=== PATIENT | male | born 1970 | race Caucasian/White ===

== ENCOUNTER 2016-08-07 14:24 | Emergency (ER) | payer SELFPAY ==
[~2016-08-07] VITALS: Ht 170.2 cm; Wt 76.0 kg
[2016-08-07 14:25] VITALS: BP 177/105; PULSE 86; RESP 16; TEMP 98; O2SAT 95
--- NOTE | 2016-08-07 16:08 | PD ---
HPI Chief Complaint: Numbness/Tingling Time Seen by Provider: 16:07 Travel History International Travel<30 days: No Contact w/Intl Traveler<30days: No Traveled to known affect area: No History of Present Illness HPI Patient is a 46-year-old male presenting to the emergency department for evaluation of numbness and tingling on the right side of his body for one week. Patient states that he gets chest pain that feels like a sharp stabbing pain in the middle of his chest. He reports the cough is worse in the morning. He denies any nausea, vomiting, abdominal pain, diaphoresis. He denies any significant past medical history however he states that he is unsure if he has any problems because he hasn't been to a doctor. Patient does endorse daily tobacco use, one pack per day. He also endorses daily EtOH use, he states he drinks 2 double shots of whiskey as well as 4 pack of but light daily. He has been doing this for the last 2 years since his divorce. Additionally patient states that his right lower leg has been extremely painful and tight, getting worse over the last week. He states that he is unable to walk on it for very long due to the pain. [facility] Past Medical History Medical History: Denies Significant Hx Past Surgical History Surgical History: No Previous Surgery Social History Alcohol Use: Yes Tobacco Use: Yes Substance Use: No Allergies-Medications (Allergen,Severity, Reaction): Coded Allergies: No Known Allergies (Unverified , 08/07/16) Review of Systems Except as stated in HPI: all other systems reviewed are Neg HENT: No: Headaches Cardiovascular: Positive: Chest Pain or Discomfort Respiratory: Positive: Cough Gastrointestinal: No: Nausea, Vomiting, Abdominal Pain Musculoskeletal: Positive: Myalgias, Pain Neurologic: Positive: Sensory Disturbance, No: Weakness, Dizziness, Syncope, Focal Abnormalities Physical Exam Narrative GENERAL: Well-developed, well-nourished, alert male. Resting comfortably in no acute distress. SKIN: Warm and dry. HEAD: Atraumatic. Normocephalic. EYES: Pupils equal and round. No scleral icterus. No injection or drainage. ENT: No nasal bleeding or discharge. Mucous membranes pink and moist. NECK: Trachea midline. No JVD. CARDIOVASCULAR: Regular rate and rhythm. No murmur appreciated. RESPIRATORY: No accessory muscle use. Clear to auscultation. Breath sounds equal bilaterally. GASTROINTESTINAL: Abdomen soft, non-tender, nondistended. Hepatic and splenic margins not palpable. MUSCULOSKELETAL: No obvious deformities. No clubbing. No cyanosis. No edema. Positive Homans sign on the right, no erythema noted. Full range of motion all 4 extremities. NEUROLOGICAL: Awake and alert. No obvious cranial nerve deficits. Motor grossly within normal limits 5/5 muscle strength in bilateral upper and lower extremities. Normal speech. PSYCHIATRIC: Appropriate mood and affect; insight and judgment normal. Data Data Last Documented VS Vital Signs Date Time Temp Pulse Resp B/P Pulse Ox O2 Delivery O2 Flow Rate FiO2 08/07/16 14:25 98.0 86 16 177/105 95 Room Air Orders Us Leg Venous Doppler (08/07/16 ) Electrocardiogram (08/07/16 16:08) Ckmb (Isoenzyme) Profile (08/07/16 16:08) Complete Blood Count With Diff (08/07/16 16:08) Comprehensive Metabolic Panel (08/07/16 16:08) Magnesium (Mg) (08/07/16 16:08) Prothrombin Time / Inr (Pt) (08/07/16 16:08) Act Partial Throm Time (Ptt) (08/07/16 16:08) Troponin I (08/07/16 16:08) Sodium Chloride 0.9% Flush (Ns Flush) (08/07/16 16:15) Chest, Single Ap (08/07/16 17:21) Ct Brain W/O Iv Contrast(Rout) (08/07/16 ) Labs Laboratory Tests Test 08/07/16 16:18 White Blood Count 13.8 TH/MM3 Red Blood Count 4.50 MIL/MM3 Hemoglobin 15.7 GM/DL Hematocrit 44.8 % Mean Corpuscular Volume 99.6 FL Mean Corpuscular Hemoglobin 34.8 PG Mean Corpuscular Hemoglobin 35.0 % Concent Red Cell Distribution Width 12.8 % Platelet Count 360 TH/MM3 Mean Platelet Volume 7.0 FL Neutrophils (%) (Auto) 72.5 % Lymphocytes (%) (Auto) 16.0 % Monocytes (%) (Auto) 9.8 % Eosinophils (%) (Auto) 1.2 % Basophils (%) (Auto) 0.5 % Neutrophils # (Auto) 10.0 TH/MM3 Lymphocytes # (Auto) 2.2 TH/MM3 Monocytes # (Auto) 1.4 TH/MM3 Eosinophils # (Auto) 0.2 TH/MM3 Basophils # (Auto) 0.1 TH/MM3 CBC Comment DIFF FINAL Differential Comment Prothrombin Time 10.4 SEC Prothromb Time International 0.9 RATIO Ratio Activated Partial 27.3 SEC Thromboplast Time Sodium Level 136 MEQ/L Potassium Level 3.8 MEQ/L Chloride Level 101 MEQ/L Carbon Dioxide Level 24.8 MEQ/L Anion Gap 10 MEQ/L Blood Urea Nitrogen 10 MG/DL Creatinine 0.90 MG/DL Estimat Glomerular Filtration 91 ML/MIN Rate Random Glucose 89 MG/DL Calcium Level 9.2 MG/DL Magnesium Level 1.9 MG/DL Total Bilirubin 0.6 MG/DL Aspartate Amino Transf 16 U/L (AST/SGOT) Alanine Aminotransferase 37 U/L (ALT/SGPT) Alkaline Phosphatase 72 U/L Total Creatine Kinase 81 U/L Troponin I LESS THAN 0.02 NG/ML Total Protein 7.9 GM/DL Albumin 4.1 GM/DL MDM Medical Decision Making Medical Screen Exam Complete: Yes Emergency Medical Condition: Yes Interpretation(s) Vital Signs Date Time Temp Pulse Resp B/P Pulse Ox O2 Delivery O2 Flow Rate FiO2 08/07/16 14:25 98.0 86 16 177/105 95 Room Air Differential Diagnosis CVA versus uncontrolled hypertension versus DVT versus electrolyte abnormality versus discogenic pain versus other Narrative Course Patient's 46-year-old male who presented to emergency department for evaluation of right-sided numbness and tingling. Patient is neurologically intact, Patient is not exhibiting any weakness on exam. He denied any history of back or neck pain. Patient's vital signs reveal elevated blood pressure 177/105, patient has no formal diagnosis of hypertension. Labs and imaging ordered and pending. Emani Patel Aug 07, 2016 16:08
[2016-08-07] MEDS ORDERED: SODIUM CHLORIDE 0.9% FLUSH 5 ML FLUSH IVF PRN (16:15)
[2016-08-07 16:46] LABS: BASOPHIL # 0.1 TH/MM3 (0-0.2); BASOPHIL % 0.5 % (0.0-2.0); EOSINOPHIL # 0.2 TH/MM3 (0-0.4); EOSINOPHIL % 1.2 % (0.0-4.0); HEMATOCRIT 44.8 % (39.0-51.0); HEMO FLAGS DIFF FINAL; LYMPHOCYTE # 2.2 TH/MM3 (1.0-4.8); MEAN CELL VOLUME 99.6 FL (80.0-100.0); MEAN CORPUSCULAR HEMOGLOBIN 34.8 PG (27.0-34.0); MONO % 9.8 % (0.0-8.0); NEUT % 72.5 % (16.0-70.0); PLATELET COUNT 360 TH/MM3 (150-450); RED CELL DISTRIBUTION WIDTH 12.8 % (11.6-17.2); WHITE BLOOD COUNT 13.8 TH/MM3 (4.0-11.0)
[2016-08-07 16:54] LABS: APTT (PATIENT) 27.3 SEC (24.3-30.1); INTERNATIONAL NORMALIZED RATIO 0.9 RATIO; PROTHROMBIN TIME - PATIENT 10.4 SEC (9.8-11.6)
[2016-08-07 17:03] LABS: ALT (GPT) 37 U/L (12-78); ANION GAP 10 MEQ/L (5-15); AST (GOT) 16 U/L (15-37); BICARBONATE 24.8 MEQ/L (21.0-32.0); BLOOD UREA NITROGEN 10 MG/DL (7-18); CHLORIDE 101 MEQ/L (98-107); GLOMERULAR FILTRATION RATE 91 ML/MIN (>89); MAGNESIUM 1.9 MG/DL (1.5-2.5); POTASSIUM 3.8 MEQ/L (3.5-5.1); SODIUM (NA) 136 MEQ/L (136-145)
[2016-08-07 17:08] LABS: ALKALINE PHOSPHATASE 72 U/L (45-117); TOTAL BILIRUBIN ADULT 0.6 MG/DL (0.2-1.0)
[2016-08-07 17:10] LABS: CREATINE KINASE 81 U/L (39-308)
--- NOTE | 2016-08-07 17:50 | RADRPT ---
EXAM DATE/TIME: 08/07/2016 17:40 [facility] COMPARISON: No previous studies available for comparison. INDICATIONS : Right side numbness. Occasional shortness of breath. MEDICAL HISTORY : None. SURGICAL HISTORY : None. ENCOUNTER: Initial ACUITY: 3 days PAIN SCORE: 0/10 LOCATION: Bilateral chest FINDINGS: A single view of the chest demonstrates the lungs to be symmetrically aerated without evidence of mas s, infiltrate or effusion. The cardiomediastinal contours are unremarkable. Osseous structures are intact. CONCLUSION: Normal examination. Darian Johnson MD on August 07, 2016 at 17:48 Board Certified Radiologist. This report was verified electronically.
--- NOTE | 2016-08-07 18:16 | RADRPT ---
EXAM DATE/TIME: 08/07/2016 17:42 [facility] COMPARISON: No previous studies available for comparison. INDICATIONS : Right leg pain. MEDICAL HISTORY : Right leg pain. Alcohol use. Tobacco use. SURGICAL HISTORY : None. ENCOUNTER: Initial ACUITY: 1 day PAIN SCORE: 8/10 LOCATION: Right leg TECHNIQUE: Venous ultrasound of the leg was performed from the inguinal ligament to the proximal calf. Real-shruti e, color Doppler and spectral tracing, compression and augmentation techniques were used. FINDINGS: There is normal compressibility of the deep venous system from the inguinal region to the proximal ca lf. No echogenic clot is seen in the lumen of the common femoral, femoral, popliteal, and posterior tibial veins. There is a superficial vein in the calf that is thrombosed, appears to be a branch of the peroneal vein. There is a normal response of the deep venous system to proximal and distal augmen tation and respiration. There is a 4.6 x 1.9 x 1.3 cm popliteal cyst. CONCLUSION: 1. No DVT but a superficial branch of the peroneal vein is thrombosed within the calf. 2. Popliteal cyst. Oscar Rosas MD on August 07, 2016 at 18:11 Board Certified Radiologist. This report was verified electronically.
--- NOTE | 2016-08-07 18:30 | RADRPT ---
EXAM DATE/TIME: 08/07/2016 18:06 [facility] COMPARISON: No previous studies available for comparison. INDICATIONS : Numbness to right side of knee,pain. RADIATION DOSE: 56.77 CTDIvol (mGy) MEDICAL HISTORY : None SURGICAL HISTORY : None. ENCOUNTER: Initial ACUITY: 1 day PAIN SCALE: 9/10 LOCATION: cranial TECHNIQUE: Multiple contiguous axial images were obtained of the head. Using automated exposure control and adj ustment of the mA and/or kV according to patient size, radiation dose was kept as low as reasonably a chievable to obtain optimal diagnostic quality images. FINDINGS: CEREBRUM: The ventricles are normal for age. No evidence of midline shift, mass lesion, hemorrhage or acute in farction. No extra-axial fluid collections are seen. POSTERIOR FOSSA: The cerebellum and brainstem are intact. The 4th ventricle is midline. The cerebellopontine angle i s unremarkable. EXTRACRANIAL: There is mucoperiosteal thickening of the ethmoid air cells. SKULL: The calvaria is intact. No evidence of skull fracture. CONCLUSION: No intracranial abnormality. Sinus disease. Oscar Rosas MD on August 07, 2016 at 18:28 Board Certified Radiologist. This report was verified electronically.
--- NOTE | 2016-08-07 18:52 | PD ---
Physical Exam Date Seen by Provider: Aug 07, 2016 Time Seen by Provider: 18:46 Narrative 46-year-old male that presents to the ED for evaluation of right-sided body numbness and tingling as well as right calf pain and chest discomfort. Patient was properly examined by previous provider Emani Santacruz, please refer to her note. Patient was signed out to me pending lab results and further disposition. Data Data Last Documented VS Vital Signs Date Time Temp Pulse Resp B/P Pulse Ox O2 Delivery O2 Flow Rate FiO2 08/07/16 17:45 97 Room Air 08/07/16 14:25 98.0 86 16 177/105 Orders Us Leg Venous Doppler (08/07/16 ) Electrocardiogram (08/07/16 16:08) Ckmb (Isoenzyme) Profile (08/07/16 16:08) Complete Blood Count With Diff (08/07/16 16:08) Comprehensive Metabolic Panel (08/07/16 16:08) Magnesium (Mg) (08/07/16 16:08) Prothrombin Time / Inr (Pt) (08/07/16 16:08) Act Partial Throm Time (Ptt) (08/07/16 16:08) Troponin I (08/07/16 16:08) Sodium Chloride 0.9% Flush (Ns Flush) (08/07/16 16:15) Chest, Single Ap (08/07/16 17:21) Ct Brain W/O Iv Contrast(Rout) (08/07/16 ) Labs Laboratory Tests Test 08/07/16 16:18 White Blood Count 13.8 TH/MM3 Red Blood Count 4.50 MIL/MM3 Hemoglobin 15.7 GM/DL Hematocrit 44.8 % Mean Corpuscular Volume 99.6 FL Mean Corpuscular Hemoglobin 34.8 PG Mean Corpuscular Hemoglobin 35.0 % Concent Red Cell Distribution Width 12.8 % Platelet Count 360 TH/MM3 Mean Platelet Volume 7.0 FL Neutrophils (%) (Auto) 72.5 % Lymphocytes (%) (Auto) 16.0 % Monocytes (%) (Auto) 9.8 % Eosinophils (%) (Auto) 1.2 % Basophils (%) (Auto) 0.5 % Neutrophils # (Auto) 10.0 TH/MM3 Lymphocytes # (Auto) 2.2 TH/MM3 Monocytes # (Auto) 1.4 TH/MM3 Eosinophils # (Auto) 0.2 TH/MM3 Basophils # (Auto) 0.1 TH/MM3 CBC Comment DIFF FINAL Differential Comment Prothrombin Time 10.4 SEC Prothromb Time International 0.9 RATIO Ratio Activated Partial 27.3 SEC Thromboplast Time Sodium Level 136 MEQ/L Potassium Level 3.8 MEQ/L Chloride Level 101 MEQ/L Carbon Dioxide Level 24.8 MEQ/L Anion Gap 10 MEQ/L Blood Urea Nitrogen 10 MG/DL Creatinine 0.90 MG/DL Estimat Glomerular Filtration 91 ML/MIN Rate Random Glucose 89 MG/DL Calcium Level 9.2 MG/DL Magnesium Level 1.9 MG/DL Total Bilirubin 0.6 MG/DL Aspartate Amino Transf 16 U/L (AST/SGOT) Alanine Aminotransferase 37 U/L (ALT/SGPT) Alkaline Phosphatase 72 U/L Total Creatine Kinase 81 U/L Troponin I LESS THAN 0.02 NG/ML Total Protein 7.9 GM/DL Albumin 4.1 GM/DL [facility] Medical Record Reviewed: Yes Supervised Visit with BRIAN: No Interpretation(s) Last Impressions Chest X-Ray 08/07/16 1721 Signed Impressions: Service Date/Time: Sunday, August 07, 2016 17:40 - CONCLUSION: Normal examination. Darian Johnson MD Lower Extremity Ultrasound 08/07/16 0000 Signed Impressions: Service Date/Time: Sunday, August 07, 2016 17:42 - CONCLUSION: 1. No DVT but a superficial branch of the peroneal vein is thrombosed within the calf. 2. Popliteal cyst. Oscar Rosas MD Head CT 08/07/16 0000 Signed Impressions: Service Date/Time: Sunday, August 07, 2016 18:06 - CONCLUSION: No intracranial abnormality. Sinus disease. Oscar Rosas MD CBC & BMP Diagram 08/07/16 16:18 coags WNL LFTs WNL EKG shows sinus rhythm with no sign of acute ischemia or arrhythmia. Troponin and CK-MB negative. Differential Diagnosis DVT versus thrombosis versus neuropathy versus peripheral neuropathy versus CVA Narrative Course 46-year-old male that presents to the ED for evaluation of right-sided leg and arm numbness as well as calf tenderness. Patient was properly examined by previous provider. I was asked to disposition patient pending lab results and imaging. Labs and imaging were essentially unremarkable other than for superficial thrombosis of the right calf. Patient has point tenderness in this area. This is likely superficial thrombosis. Patient was told to take ibuprofen or aspirin for pain as needed. In regards to his numbness and tingling he is neurovascularly intact. No sign of weakness. I suspect that this is some sort of peripheral neuropathy. Possibly brought on from the drinking. I did consult the patient extensively on quitting drinking as well as smoking. I think that this will definitely make a difference in his life. He agrees and understands. Patient was told to follow up with neurologist. See ED for any worsening symptoms. Patient happy with care. All questions were answered to the best of my ability. Diagnosis Primary Impression: Leg vein thromboembolism, superficial Qualified Code: I82.811 - Leg vein thromboembolism, superficial, right Additional Impression: Peripheral neuropathy Qualified Code: G62.9 - Peripheral polyneuropathy Referrals: Annamarie Baires MD Patient Instructions: General Instructions Additional Instruction: Take aspirin 81 mg every day to help with the blood clot. Follow-up with PCP. Discontinue smoking and drinking. See ED for any worsening symptoms. Follow with neurologist. Med/Other Pt SpecificInfo: No Change to Meds Scripts No Active Prescriptions or Reported Meds Disposition: 01 DISCHARGE HOME Condition: Stable David Toledo Aug 07, 2016 18:52
[2016-08-07 19:37] VITALS: BP 154/94
--- NOTE | 2016-08-08 16:30 | EKG ---
Date Performed: 08/07/2016 Time Performed: 16:27:59 PTAGE: 46 years EKG: Sinus rhythm POSSIBLE LEFT ATRIAL ENLARGEMENT BORDERLINE ECG NO PREVIOUS TRACING DOCTOR: Clif Taylor Interpretating Date/Time 08/08/2016 16:29:53
== END 2016-08-07 19:54 | disposition home or self-care (01) ==
LOC: NEPC 14:24
DX: I82.811 Embolism and thrombosis of superficial veins of right lower extremity (principal); G62.9 Polyneuropathy, unspecified; R07.9 Chest pain, unspecified; R20.0 Anesthesia of skin; R20.2 Paresthesia of skin; R03.0 Elevated blood-pressure reading, without diagnosis of hypertension; R94.31 Abnormal electrocardiogram [ECG] [EKG]; F17.200 Nicotine dependence, unspecified, uncomplicated
CPT/HCPCS: 70450; 71010; 80053; 82550; 83735; 84484; 85025; 85610; 85730; 93005; 93971